=== PATIENT | male | born 1955 | race Hispanic/Latino ===

== ENCOUNTER 2017-08-14 11:58 | Emergency (ER) | payer SELFPAY ==
[2017-08-14] MEDS ORDERED: Adacel (T-DAP) 0.5 ML VIAL ONE (12:04)
[2017-08-14] MEDS ORDERED: Triple Antibiotic Oint 1 GM Packet ONE (12:42)
== END 2017-08-14 13:01 | disposition home or self-care (01) ==
LOC: ERS 11:58
DX: S31.111A Laceration without foreign body of abdominal wall, left upper quadrant without penetration into peritoneal cavity, initial encounter (principal); Z23 Encounter for immunization; W27.0XXA Contact with workbench tool, initial encounter
CPT/HCPCS: 12004; 90471; 90715

== ENCOUNTER 2017-09-01 13:42 | Emergency (ER) | payer SELFPAY ==
[2017-09-01] MEDS ORDERED: Bacitracin Zinc 1 Packet ONE (14:04)
== END 2017-09-01 14:12 | disposition home or self-care (01) ==
LOC: ERS 13:42
DX: S31.119D Laceration without foreign body of abdominal wall, unspecified quadrant without penetration into peritoneal cavity, subsequent encounter (principal)